=== PATIENT | female | born 1955 | race Caucasian/White ===

== ENCOUNTER 2020-03-23 07:39 | Emergency (ER) | payer MEDICAID, SELFPAY ==
--- NOTE | 2020-03-23 07:54 | ECG_ITS ---
Test Reason : HIGH BP Blood Pressure : / mmHG Vent. Rate : 074 BPM Atrial Rate : 074 BPM P-R Int : 148 ms QRS Dur : 126 ms QT Int : 434 ms P-R-T Axes : 061 -59 081 degrees QTc Int : 481 ms Normal sinus rhythm Possible Left atrial enlargement Right bundle branch block Left anterior fascicular block Bifascicular block Left ventricular hypertrophy with repolarization abnormality Cannot rule out Septal infarct , age undetermined Abnormal ECG When compared with ECG of 16-SEP-2014 11:32, (RBBB and left anterior fascicular block) is now Present Minimal criteria for Septal infarct are now Present Referred By: Yudith Chong Electronically Signed By:ELOISA TAYLOR
--- NOTE | 2020-03-23 07:56 | ED_ITS ---
HPI - General Adult General Chief complaint: Arrhythmia/Palpitations Stated complaint: HBP, Rapid Heart Rate Time Seen by Provider: 03/23/20 07:54 Source: patient Mode of arrival: ambulatory Limitations: no limitations History of Present Illness complaint: elevated BP and rapid HR Onset (ago): day(s) (3) Severity: moderate Relieving factors: none Exacerbating factors: other (had a cold took OTC cold medicines and she noted her BP went up) Associated symptoms: denies other symptoms Treatments prior to arrival: other (increased her lisinopril to 40mg daily usually 20mg daily took extra dose last night) Related Data Allergies Allergy/AdvReac Type Severity Reaction Status Date / Time penicillin V Allergy Unknown legs and Verified 03/23/20 08:09 hands go numb ALL NON-NAME BRAND MEDS Allergy Unknown UNKNOWN Uncoded 12/30/19 17:34 Cipro Allergy Unknown couldn't Uncoded 08/13/19 00:00 move Review of Systems Review of Systems: Constitutional : No Weight loss, No Fever, No Chills, No Fatigue, No Malaise ENT/Mouth : No sore throat, No Rhinorrhea Eyes: No Eye Pain, No Swelling, No Redness Cardiovascular : No Chest Pain, No SOB, No Dyspnea on Exertion, No Orthopnea, No Edema, No Palpitations Respiratory : No Cough, No Sputum, No Wheezing Gastrointestinal : No Nausea, No Vomiting, No Diarrhea, No Constipation, No abdominal Pain, No Hematochezia, No Melena Genitourinary : No Dysuria, No Urinary Frequency, No Hematuria, Musculoskeletal : No joint pain, No Myalgias, No Joint Swelling Skin : No Skin Lesions, No rash Neuro : No Weakness, No Numbness, No Dizziness, No Headache Psych : No Anxiety/Panic, No Depression All other systems reviewed and are negative [facility] Past Medical History Attestation statement: The following information was validated with the patient. Medical History (Updated 03/23/20 @ 09:43 by Yudith Chong DO) Factor 5 Leiden mutation, heterozygous HTN (hypertension) Social History Social History (Updated 03/23/20 @ 07:58 by Yudith Chong DO) Smoking Status: Never smoker Use of substances other than those prescribed or required for medical reasons: No Advance Directives: No Advance Directives Information Provided: No Physical Exam Vital Signs: Vital Signs: Last Vital Signs Temp 98.7 F 03/23/20 08:10 Pulse 74 03/23/20 08:10 Resp 18 03/23/20 08:10 BP 136/65 03/23/20 08:10 Pulse Ox 99 03/23/20 08:10 Body Mass Index 29.0 Appearance: Alert. Oriented X3. No acute distress. Eyes: Pupils equal, round and reactive to light. ENT: Pharynx normal. Neck: Normal inspection. Neck supple. CVS: Normal heart rate and rhythm. Pulses normal. Respiratory: No respiratory distress. Breath sounds normal. Abdomen: Soft and non-tender. Skin: Skin warm and dry. Normal skin color. Normal skin turgor. Extremities: No lower extremity edema. No calf ttp Neuro: Oriented X 3. No motor deficit. No sensory deficit. Course Course Course Narrative: BP much improved HR in 70s will instruct patient to continue 20mg lisinopril daily and follow up with PCP WBCs low so I obtained a COVID swab which is positive, patient aware Medical Decision Making [facility] Narrative Medical decision making narrative: 64 yo female with hx of HTN on lisinopril usually 20mg daily here with BPs at home 190s and elevated HR after taking OTC medications she has had no CP/SOB - will obtain labs, EKG, TSH - monitor may need additional medications if her BP remains high during her stay Lab Data Result diagrams: 03/23/20 08:46 03/23/20 08:46 Labs: Lab Results 03/23/20 03/23/20 03/23/20 Range/Units 08:46 08:46 09:19 WBC 3.3 L (4.8-10.8) X10*3/uL RBC 4.78 (4.20-5.50) X10*6/uL Hgb 14.6 (12.0-16.0) g/dl Hct 42.3 (37-47) % MCV 88.5 (80-98) fL MCH 30.5 (27.0-33.0) pg MCHC 34.5 (31.0-35.0) g/dl RDW 12.4 (11.0-16.0) % Plt Count 273 (160-400) X10*3/uL MPV 10.4 (9.4-12.3) fL Immature Gran % (Auto) 0.3 (0.0-0.4) % Neut % (Auto) 62.5 (45-73) % Lymph % (Auto) 27.6 (20-40) % Lee % (Auto) 7.2 (2-11) % Eos % (Auto) 2.4 (0-4) % Baso % (Auto) 0.0 (0-2) % Lymph # (Auto) 0.9 L (1.2-4.9) X10*3/uL Lee # (Auto) 0.2 (0.1-1.2) X10*3/uL Eos # (Auto) 0.1 (0.0-0.4) X10*3/uL Baso # (Auto) 0.0 (0.0-0.2) X10*3/uL Abs Immat Gran (auto) 0.01 (0.00-0.03) X10*3/uL Absolute Neuts (auto) 2.1 (2.0-8.3) X10*3/uL Absolute Nucleated RBC 0.000 (0.0-0.012) X10*3/uL Nucleated RBC % (auto) 0.0 (0.0-0.2) /100WBC Sodium 140 (135-145) mmol/L Potassium 4.0 (3.3-5.1) mmol/l Chloride 101 (96-108) mmol/L Carbon Dioxide 28 (22-29) mmol/L Anion Gap 15 (12-20) BUN 19 H (9-16) mg/dL Creatinine 0.72 (0.5-1.4) mg/dL Estim Creat Clear Calc 86.1 Estimated GFR > 60 Random Glucose 106 (60-115) mg/dL Calcium 9.9 (8.4-10.2) mg/dL Total Bilirubin 0.5 (0.0-1.0) mg/dL Direct Bilirubin 0.2 (0.0-0.5) mg/dL AST 23 (5-31) U/L ALT 21 (0-31) U/L Alkaline Phosphatase 101 (39-117) U/L Total Protein 6.8 (6.5-8.0) g/dL Albumin 4.5 (3.5-5.0) g/dL COVID-19 (TIKA) Positive A (Negative) COVID-19 Clin Com See Note ECG Data Attestation: I personally reviewed and interpreted this ECG as follows: Interpretation: Rate: 74 Rhythm: NSR [place]: left, LVH Normal P waves. Normal LINDA. RBBB ST T wave : normal qTC: normal prior studies: no acute ischemia, RBBB new since 2014 The study has been interpreted contemporaneously by me. . Discharge Plan Discharge Clinical Impression: COVID-19, HTN (hypertension) Patient Disposition: Home, Self-Care Instructions: COVID-19 (Coronavirus Disease 2019) (ED), Chronic Hypertension (ED) Additional Instructions: return to ED for any worsening symptoms or concerns take 20mg of your HTN medication lisinopril (zestril) daily Referrals: Pepper Nugent MD [Primary Care Provider] - 2 days (as needed) Stand Alone Forms: Work/School Release
[2020-03-23 08:10] VITALS: BP 136/65; PULSE 74; RESP 18; TEMP 37.1; O2SAT 99; BMI 29.0
[2020-03-23 08:55] LABS: Eosinophils Absolute Auto 0.1 X10*3/uL (0.0-0.4); Eosinophils Percent Auto 2.4 % (0-4); Hematocrit 42.3 % (37-47); Hemoglobin 14.6 g/dl (12.0-16.0); Imm Gran Abs Auto 0.01 X10*3/uL (0.00-0.03); Imm Gran Pct Auto 0.3 % (0.0-0.4); Lymphocytes Absolute Auto 0.9 X10*3/uL (1.2-4.9); Lymphocytes Percent Auto 27.6 % (20-40); Mean Corpuscular HGB Conc 34.5 g/dl (31.0-35.0); Mean Corpuscular Hemoglobin 30.5 pg (27.0-33.0); Mean Corpuscular Volume 88.5 fL (80-98); Mean Platelet Volume 10.4 fL (9.4-12.3); Monocytes Absolute Auto 0.2 X10*3/uL (0.1-1.2); Monocytes Percent Auto 7.2 % (2-11); Neutrophils Absolute Auto 2.1 X10*3/uL (2.0-8.3); Neutrophils Percent Auto 62.5 % (45-73); Platelet Count 273 X10*3/uL (160-400); Red Blood Count 4.78 X10*6/uL (4.20-5.50); Red Cell Distribution Width 12.4 % (11.0-16.0); White Blood Count 3.3 X10*3/uL (4.8-10.8)
[2020-03-23 08:56] LABS: MANUAL DIFF FLAG NO
[2020-03-23 09:22] LABS: Alanine Aminotransferase 21 U/L (0-31); Albumin Level 4.5 g/dL (3.5-5.0); Alkaline Phosphatase 101 U/L (39-117); Anion Gap 15 (12-20); Aspartate Amino Transferase 23 U/L (5-31); Bilirubin Direct 0.2 mg/dL (0.0-0.5); Bilirubin Total 0.5 mg/dL (0.0-1.0); Blood Urea Nitrogen 19 mg/dL (9-16); Calcium 9.9 mg/dL (8.4-10.2); Carbon Dioxide 28 mmol/L (22-29); Chloride 101 mmol/L (96-108); Creatinine Clr Calc Pharmacy 86.1; Estimated Glomerular Filt Rate > 60; Glucose Random 106 mg/dL (60-115); Sodium 140 mmol/L (135-145); Total Protein 6.8 g/dL (6.5-8.0)
[2020-03-23 09:34] LABS: COVID-19 Test Positive (Negative)
[2020-03-23 09:42] LABS: Thyroid Stimulating Hormone 0.68 uIU/mL (0.32-4.0)
== END 2020-03-23 10:06 | disposition home or self-care (01) ==
PROVIDERS: Emergency Provider Emergency Medicine; PCP Internal Medicine
DX: U07.1 COVID-19 (principal); I10 Essential (primary) hypertension
CPT/HCPCS: 36415; 80048; 80076; 84443; 85025; 87635; 93005; 99283

== ENCOUNTER 2020-03-31 09:29 | Outpatient (REF) | payer MEDICAID, SELFPAY | END 2020-03-31 09:30 | disposition home or self-care (01) | LOC: HO.LAB 09:29 | PROVIDERS: Visit Provider Internal Medicine | DX: Z20.828 Contact with and (suspected) exposure to other viral communicable diseases (principal) | CPT/HCPCS: C9803; U0003 ==

== ENCOUNTER 2020-09-07 07:22 | Outpatient (REF) | payer MEDICAID, SELFPAY ==
[2020-09-07 11:18] LABS: MANUAL DIFF FLAG NO
[2020-09-07 11:24] LABS: Basophils Percent Auto 0.3 % (0-2); Eosinophils Absolute Auto 0.2 X10*3/uL (0.0-0.4); Eosinophils Percent Auto 6.4 % (0-4); Hematocrit 41.4 % (37-47); Hemoglobin 13.8 g/dl (12.0-16.0); Imm Gran Abs Auto 0.01 X10*3/uL (0.00-0.03); Imm Gran Pct Auto 0.3 % (0.0-0.4); Lymphocytes Absolute Auto 0.7 X10*3/uL (1.2-4.9); Lymphocytes Percent Auto 18.7 % (20-40); Mean Corpuscular HGB Conc 33.3 g/dl (31.0-35.0); Mean Corpuscular Hemoglobin 30.3 pg (27.0-33.0); Mean Platelet Volume 10.7 fL (9.4-12.3); Monocytes Absolute Auto 0.5 X10*3/uL (0.1-1.2); Monocytes Percent Auto 13.9 % (2-11); Neutrophils Absolute Auto 2.3 X10*3/uL (2.0-8.3); Neutrophils Percent Auto 60.4 % (45-73); Platelet Count 232 X10*3/uL (160-400); Red Blood Count 4.55 X10*6/uL (4.20-5.50); Red Cell Distribution Width 12.4 % (11.0-16.0); White Blood Count 3.7 X10*3/uL (4.8-10.8)
[2020-09-07 11:40] LABS: Alanine Aminotransferase 21 U/L (0-31); Anion Gap 14 (12-20); Aspartate Amino Transferase 22 U/L (5-31); Blood Urea Nitrogen 23 mg/dL (9-16); Calcium 9.7 mg/dL (8.4-10.2); Carbon Dioxide 27 mmol/L (22-29); Chloride 103 mmol/L (96-108); Cholesterol 208 mg/dL; Estimated Glomerular Filt Rate > 60; Glucose Fasting 92 mg/dL (60-99); HDL Cholesterol 51 mg/dL; LDL Cholesterol Calculated 138 mg/dl; Potassium 4.5 mmol/L (3.3-5.1); Sodium 139 mmol/L (135-145); Triglycerides 98 mg/dL
[2020-09-07 11:54] LABS: SARS COV2 IgG Positive (Negative)
[2020-09-07 12:02] LABS: TSH reflex Free T4 0.86 uIU/mL (0.32-4.0); Vitamin D 25-OH Total 31.2 ng/mL (>30)
== END 2020-09-07 07:23 | disposition home or self-care (01) ==
LOC: HO.HMGCLDS 07:22
PROVIDERS: PCP Internal Medicine; Visit Provider Internal Medicine
DX: Z00.01 Encounter for general adult medical examination with abnormal findings (principal); D68.51 Activated protein C resistance; I10 Essential (primary) hypertension; Z86.16 Personal history of COVID-19
CPT/HCPCS: 36415; 80048; 80061; 82306; 84443; 84450; 84460; 85025; 86769

== ENCOUNTER 2020-12-21 08:07 | Outpatient (REF) | payer MEDICAID, SELFPAY ==
[2020-12-21 11:10] LABS: Basophils Percent Auto 0.2 % (0-2); Eosinophils Absolute Auto 0.3 X10*3/uL (0.0-0.4); Eosinophils Percent Auto 5.7 % (0-4); Hematocrit 39.9 % (37-47); Hemoglobin 13.4 g/dl (12.0-16.0); Imm Gran Abs Auto 0.01 X10*3/uL (0.00-0.03); Imm Gran Pct Auto 0.2 % (0.0-0.4); Lymphocytes Absolute Auto 1.2 X10*3/uL (1.2-4.9); Lymphocytes Percent Auto 28.3 % (20-40); MANUAL DIFF FLAG NO; Mean Corpuscular HGB Conc 33.6 g/dl (31.0-35.0); Mean Corpuscular Hemoglobin 30.9 pg (27.0-33.0); Mean Corpuscular Volume 91.9 fL (80-98); Mean Platelet Volume 10.8 fL (9.4-12.3); Monocytes Absolute Auto 0.4 X10*3/uL (0.1-1.2); Monocytes Percent Auto 10.1 % (2-11); Neutrophils Absolute Auto 2.4 X10*3/uL (2.0-8.3); Neutrophils Percent Auto 55.5 % (45-73); Platelet Count 264 X10*3/uL (160-400); Red Blood Count 4.34 X10*6/uL (4.20-5.50); Red Cell Distribution Width 12.5 % (11.0-16.0); White Blood Count 4.4 X10*3/uL (4.8-10.8)
[2020-12-21 11:36] LABS: Alanine Aminotransferase 14 U/L (0-31); Anion Gap 11 (12-20); Aspartate Amino Transferase 19 U/L (5-31); Blood Urea Nitrogen 17 mg/dL (9-16); Calcium 9.5 mg/dL (8.4-10.2); Carbon Dioxide 28 mmol/L (22-29); Chloride 106 mmol/L (96-108); Cholesterol 171 mg/dL; Estimated Glomerular Filt Rate > 60; Glucose Fasting 89 mg/dL (60-99); HDL Cholesterol 56 mg/dL; LDL Cholesterol Calculated 95 mg/dl; Potassium 4.1 mmol/L (3.3-5.1); Sodium 141 mmol/L (135-145); Triglycerides 104 mg/dL
[2020-12-21 12:00] LABS: Vitamin D 25-OH Total 31.2 ng/mL (>30)
== END 2020-12-21 08:08 | disposition home or self-care (01) ==
LOC: HO.HMGCLDS 08:07
PROVIDERS: PCP Internal Medicine; Visit Provider Internal Medicine
DX: Z00.00 Encounter for general adult medical examination without abnormal findings (principal); I10 Essential (primary) hypertension; Z78.0 Asymptomatic menopausal state
CPT/HCPCS: 36415; 80048; 80061; 82306; 84450; 84460; 85025

== ENCOUNTER 2021-04-23 09:19 | Outpatient (REF) | payer MEDICAID, SELFPAY ==
[2021-04-23 09:42] LABS: Binax Internal Control QC Valid; Binax Now Covid-19 Ag Positive (Negative)
== END 2021-04-23 09:20 | disposition home or self-care (01) ==
LOC: HO.HMGCLDS 09:19
PROVIDERS: Visit Provider Internal Medicine
DX: Z20.822 Contact with and (suspected) exposure to COVID-19 (principal); J06.9 Acute upper respiratory infection, unspecified
CPT/HCPCS: 36415

== ENCOUNTER 2021-05-09 09:35 | Outpatient (REF) | payer MEDICAID, SELFPAY ==
--- NOTE | ~2021-05-09 | XR_ITS ---
EXAMINATION: XR CHEST CLINICAL INFORMATION: Cough COMPARISON: December 08, 2007 TECHNIQUE: 2 views of the chest were obtained. FINDINGS: No significant abnormality is noted involving the heart, lungs, mediastinum, bony thorax or soft tissues. There is multilevel spurring seen about the mid and lower thoracic spine. XR/XR chest 2V IMPRESSION: No acute disease.
== END 2021-05-09 09:36 | disposition home or self-care (01) ==
LOC: HO.HMGCX 09:35
PROVIDERS: PCP Internal Medicine; Visit Provider Physician Assistant Medical
DX: R05.9 Cough, unspecified (principal)
CPT/HCPCS: 71046

== ENCOUNTER 2022-10-10 07:58 | Outpatient (REF) | payer MEDICARE, MEDICAID, SELFPAY ==
[2022-10-10 11:14] LABS: MANUAL DIFF FLAG NO
[2022-10-10 11:16] LABS: Basophils Percent Auto 0.2 % (0-2); Eosinophils Absolute Auto 0.2 X10*3/uL (0.0-0.4); Eosinophils Percent Auto 5.8 % (0-4); Hematocrit 40.9 % (37.0-47.0); Hemoglobin 13.5 g/dl (12.0-16.0); Imm Gran Abs Auto 0.01 X10*3/uL (0.00-0.03); Imm Gran Pct Auto 0.2 % (0.0-0.4); Lymphocytes Absolute Auto 1.1 X10*3/uL (1.2-4.9); Lymphocytes Percent Auto 25.3 % (20-40); Mean Corpuscular Hemoglobin 29.9 pg (27.0-33.0); Mean Corpuscular Volume 90.7 fL (80.0-98.0); Mean Platelet Volume 10.8 fL (9.4-12.3); Monocytes Absolute Auto 0.4 X10*3/uL (0.1-1.2); Monocytes Percent Auto 8.7 % (2-11); Neutrophils Absolute Auto 2.5 x10*3/uL (2.0-8.3); Neutrophils Percent Auto 59.8 % (45-73); Platelet Count 271 X10*3/uL (160-400); Red Blood Count 4.51 X10*6/uL (4.20-5.50); Red Cell Distribution Width 12.5 % (11.0-16.0); White Blood Count 4.2 X10*3/uL (4.8-10.8)
[2022-10-10 11:47] LABS: Alanine Aminotransferase 20 U/L (0-31); Anion Gap 13 (12-20); Aspartate Amino Transferase 21 U/L (5-31); Blood Urea Nitrogen 16 mg/dL (9-16); Calcium 10.2 mg/dL (8.4-10.2); Carbon Dioxide 26 mmol/L (22-29); Chloride 106 mmol/L (96-108); Cholesterol 181 mg/dL; Estimated Glomerular Filt Rate > 60; Glucose Fasting 97 mg/dL (60-99); HDL Cholesterol 48 mg/dL; LDL Cholesterol Calculated 117 mg/dl; Potassium 3.9 mmol/L (3.3-5.1); Sodium 141 mmol/L (135-145); Triglycerides 82 mg/dL
[2022-10-10 11:56] LABS: Vitamin D 25-OH Total 40.8 ng/mL (>30)
== END 2022-10-10 07:59 | disposition home or self-care (01) ==
LOC: HO.HMGCLDS 07:58
PROVIDERS: PCP Internal Medicine; Visit Provider Internal Medicine
DX: Z00.01 Encounter for general adult medical examination with abnormal findings (principal); I10 Essential (primary) hypertension; Z78.0 Asymptomatic menopausal state
CPT/HCPCS: 36415; 80048; 80061; 82306; 84450; 84460; 85025

== ENCOUNTER 2022-11-12 12:44 | Outpatient (REF) | payer MEDICARE, MEDICAID, SELFPAY ==
--- NOTE | ~2022-11-12 | MM_ITS ---
EXAMINATION: BONE DENSITOMETRY CLINICAL INDICATION: Encounter for screening for osteoporosis. COMPARISON: This is the patient's baseline examination. TECHNIQUE: Using a [employer] DXA System (software version: 13.1) manufactured by [employer], dual-energy x-ray absorptiometry was performed of the lumbar spine and left hip. The images are of good technical quality. Summary results are attached. FINDINGS: AP SPINE L1-L2 (excluding L3 and L4): The data of L1-L4 has been changed to exclude the L3 and L4 vertebral bodies, because degenerative sclerosis at these levels may cause overestimation of lumbar spine density. BMD 0.996 g/cm2, Z-score -0.2, T-score -1.4, osteopenia. LEFT FEMUR, NECK: BMD 0.889 g/cm2, Z-score 0.2, T-score -1.1, osteopenia. LEFT FEMUR, TOTAL: BMD 0.804 g/cm2, Z-score -0.6, T-score -1.6, osteopenia. IDENTIFIED RISK FACTORS: Menopause. HISTORY OF FRACTURE: None listed. MEDICATIONS: Multivitamins. MM/XR DEXA axial skeleton IMPRESSION: 1. DIAGNOSIS: Osteopenia based on the lowest T-score value of -1.6 in the total femur applying World Health Organization criteria. 2. 10-YEAR FRACTURE RISK PREDICTION, FRAX: Major osteoporotic fracture (clinical spine, forearm, hip or shoulder) 8.2%. Hip fracture 0.7%. 3. Treatment Recommendations: NOF guidelines recommend consideration for treatment in postmenopausal women and men age 50 and older presenting with the following: -A hip or vertebral (clinical or morphometric) fracture. -T-score less than or equal to -2.5 at the femoral neck or spine after appropriate evaluation to exclude secondary causes. -Low bone mass at the hip or spine and a 10-year fracture probability by FRAX of greater than or equal to 3% for hip fracture or greater than or equal to 20% for major osteoporotic fracture based on the [place] adapted WHO algorithm. 4. Other Recommendations: All treatment decisions require clinical judgment and consideration of individual patient factors, including patient preferences, comorbidities, previous drug use, risk factors not captured in the FRAX model (e.g. frailty, falls, vitamin D deficiency, increased bone turnover, interval significant decline in bone density) and possible under or overestimation of fracture risk by FRAX. Additional medical evaluation for secondary cause of low bone mineral density may be appropriate. FUTURE SCAN RECOMMENDATION: People with diagnosed cases of osteoporosis or at high risk for fracture should have regular bone mineral density tests. For patients eligible for Medicare, routine testing is allowed once every 2 years. The testing frequency can be increased to one year for patients who have rapidly progressing disease, those who are receiving or discontinuing medical therapy to restore bone mass, or have additional risk factors.
--- NOTE | ~2022-11-12 | MM_ITS ---
EXAMINATION: MM SCREENING DIGITAL BREAST TOMOSYNTHESIS, BILATERAL CLINICAL INFORMATION: Screening. Asymptomatic. The lifetime risk of breast cancer based on the Tyrer-Cuzick Model is 10.6%. COMPARISON: Mammography: This study is compared with prior exams dating back to 2017.. TECHNIQUE: Digital breast tomosynthesis is performed in both the craniocaudal and mediolateral oblique views along with computer-aided detection (CAD). Synthesized 2D images are generated from the tomosynthesis. FINDINGS: There are scattered areas of fibroglandular density (ACR BI-RADS breast composition Category b). There are no significant masses, abnormal calcifications, or other abnormalities. MM/MM tomosynthesis screening BI IMPRESSION: No mammographic evidence of malignancy. ASSESSMENT: BI-RADS BI-RADS 1 - Negative RECOMMENDATION: Routine annual mammography screening. 1 year F/U This examination should not preclude the clinical evaluation of a suspicious palpable abnormality. This patient's information was entered into a reminder system with a target due date for their next mammogram.
== END 2022-11-12 12:45 | disposition home or self-care (01) ==
LOC: HO.MAMMO 12:44
PROVIDERS: PCP Internal Medicine; Visit Provider Internal Medicine
DX: Z12.31 Encounter for screening mammogram for malignant neoplasm of breast (principal); Z13.820 Encounter for screening for osteoporosis; Z78.0 Asymptomatic menopausal state
CPT/HCPCS: 77063; 77067; 77080

== ENCOUNTER → 2022-11-12 13:15 | Outpatient (BNV) | payer MEDICARE, MEDICAID, SELFPAY | PROVIDERS: PCP Internal Medicine; Visit Provider Radiology Diagnostic Radiology | DX: M85.89 Other specified disorders of bone density and structure, multiple sites (principal) | CPT/HCPCS: 77063; 77067; 77080 ==

== ENCOUNTER → 2023-12-18 14:19 | Outpatient (RCR) | payer MEDICAID, SELFPAY ==
[2020-09-26 10:15] VITALS: BP 116/59; PULSE 76; RESP 14; TEMP 36.3; O2SAT 100; BMI 27.5
--- NOTE | 2020-09-26 11:09 | P.CNHO_ITS ---
Subjective - Subjective Chief complaint: Family history of thrombophilia Patient: new to practice Consult date: 09/26/20 Requesting Physician: Dr. Nugent Primary Care Provider: Pepper Nugent MD Medical Summary: Diagnosis: Personal and family history of prothrombin gene mutation. 2016-homozygous for prothrombin gene mutation. HPI - Consult Narrative Reason for consult: Thrombophilia Narrative: Erika Ley is a 65 year old female referred for Hematology evaluation because of personal history of thrombophilia and family history of thromboembolism. She has been doing well although she did get COVID-19 infection in March 2020. She did not want to get vaccinated because of her severe allergies. She does not receive flu shot because of the same recent. She was asymptomatic with her COVID infection. She has had no other medical problems since her last visit here in 2015. One of her brothers however, developed extensive DVT after knee surgery. He did not receive perioperative thromboprophylaxis as per her report. She denies any problems such as pleuritic chest pain, cough or shortness of breath. She is going to go for her mammogram but does not want to receive COVID-19 vaccination. 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 Brother Factor 5 Leiden mutation, heterozygous Surgical History: Surgical History (Last Reviewed 09/11/20 @ 18:25 by Pepper Nugent MD) H/O right knee surgery Social History: Social History (Last Updated 09/26/20 @ 10:22 by Hoda John) Alcohol History: Alcohol intake: current Alcohol History Details: Alcohol intake frequency: a few times a month Tobacco History: Patient Tobacco Use Status: Former Tobacco user Cigarette Packs Per Day: 1.5 Cigarettes Per Day: 30.0 Smoke Quit Date: 1989 Substance Use History: Use of substances other than those prescribed or required for medical reasons : No Home Medications and Allergies Home Medications Medication Instructions Recorded Confirmed Type lisinopril [Zestril] 1 tab PO DAILY 09/26/20 09/26/20 History Allergies Allergy/AdvReac Type Severity Reaction Status Date / Time penicillin V Allergy Unknown legs and Verified 09/05/20 14:39 hands go numb Cipro Allergy Unknown couldn't Uncoded 08/13/19 00:00 move Physical Exam Vital signs: Vital Signs Temp 97.4 F 09/26/20 10:15 Pulse 76 09/26/20 10:15 Resp 14 09/26/20 10:15 BP 116/59 L 09/26/20 10:15 Pulse Ox 100 09/26/20 10:15 Intake & Output 09/25/20 09/26/20 09/26/20 18:59 06:59 18:59 Other: Weight 77.4 kg [place] Weight in Grams 20989 Weight 77.4 kg - Constitutional Present: no acute distress - Routine HEENT Exam Head: Present: normal inspection Eye: Present: normal appearance - Routine Neck Exam Present: supple. Absent: lymphadenopathy - Routine Respiratory Exam Absent: accessory muscle use - Routine Cardiovascular Exam Cardiovascular: Present: S1, S2 - Routine Extremities Exam Present: normal inspection. Absent: joint swelling - Routine Skin Exam Present: intact. Absent: cyanosis, erythema Assessment and Plan (1) Prothrombin gene mutation Status: Chronic 1. This is a 65-year-old woman with personal history of homozygous positivity for Prothrombin gene mutation. Two of her brothers also have this, both have had problems with thromboembolism. Patient herself has never had DVT or thromboembolism. She is aware of her increased risk of thrombosis and to inform her doctors about this if she is scheduled for any surgery. She has 3 children, they have been informed but not tested for prothrombin gene mutation. The role doing well. She is doing well overall. Today we discussed pros and cons of COVID-19 vaccination. She has developed antibodies since her infection in March 2020. Because of her severe allergies to medications as well as seasonal allergies, she wants to defer receiving vaccine at this time. I thank you for this consultation. Follow-up in 1 year.
--- NOTE | 2021-09-26 11:09 | HO.HEMONCSCH ---
Patient called to cancel appt did not specify why . she did not want to reschedule when we were on the phone . she states she will call back to reschedule .
== END | disposition home or self-care (01) ==
LOC: HO.ONC 09-26 09:56
PROVIDERS: PCP Internal Medicine; Referring Provider Internal Medicine; Visit Provider Internal Medicine
DX: D68.52 Prothrombin gene mutation (principal)
CPT/HCPCS: 99202

== ENCOUNTER 2025-04-04 08:43 | Emergency (ER) | payer MEDICARE, MEDICAID, SELFPAY ==
--- NOTE | ~2025-04-04 | CT_ITS ---
EXAMINATION: CT ABDOMEN PELVIS WITH IV CONTRAST HISTORY: Epigastric abdominal pain. Nausea/vomiting COMPARISON: There are no prior studies for available comparison. TECHNIQUE: CT scan of the abdomen and pelvis was performed following administration of 85 mL Omnipaque 350 using standard departmental protocol. Coronal and sagittal reformatted images were generated and reviewed. Oral contrast material was not administered at the request of the referring physician. This CT exam was performed with one or more of the following dose reduction techniques: automated exposure control, adjustment of the mA and/or kV according to patient size, use of iterative reconstruction technique. DLP: 446 mGy-cm FINDINGS: LOWER CHEST: The visualized lung bases are clear. There is no pleural effusion. CARDIOVASCULATURE: The heart is normal in size. There is no pericardial effusion. LIVER: The liver is enlarged. No liver mass is identified. The hepatic and portal veins are patent. GALLBLADDER / BILE DUCTS: There is cholelithiasis. There is no intra or extrahepatic biliary ductal dilatation. SPLEEN: The spleen is enlarged. No focal splenic lesion is identified. PANCREAS: The pancreas is unremarkable in appearance. ADRENAL GLANDS: Within normal limits. KIDNEYS/RETROPERITONEUM: No renal calculi are identified. There is no hydronephrosis. No renal masses are identified. LYMPH NODES: No abdominal or pelvic lymphadenopathy. VASCULATURE: The abdominal aorta is normal in caliber. MESENTERY/PERITONEUM: No free fluid. No masses. There is no free intraperitoneal gas. STOMACH: There is a small hiatal hernia. The remainder the stomach is collapsed. SMALL BOWEL: The small bowel is normal in caliber. COLON: There is a large amount of stool in the proximal colon. APPENDIX: Normal. URINARY BLADDER/PELVIC ORGANS: The urinary bladder is unremarkable. There are calcifications in the uterus measuring up to 1.7 cm in size, consistent with fibroids. BONES / SOFT TISSUES: There is severe degenerative disc disease of the spine. CT/CT abdomen pelvis w IV con IMPRESSION: 1. Hepatosplenomegaly. 2. Cholelithiasis. 3. Small hiatal hernia. 4. Large amount of stool in the proximal colon. Electronically signed by: Jeff Salazar MD 04/04/2025 10:48 AM [facility]
[2025-04-04 08:49] VITALS: BP 164/69; PULSE 62; RESP 16; TEMP 36; O2SAT 100; BMI 25.4
--- NOTE | 2025-04-04 08:56 | ECG_ITS ---
Test Reason : abd pain Blood Pressure : */* mmHG Vent. Rate : 63 BPM Atrial Rate : 63 BPM P-R Int : 162 ms QRS Dur : 138 ms QT Int : 472 ms P-R-T Axes : 46 -48 74 degrees QTcB Int : 483 ms Normal sinus rhythm Right bundle branch block Left anterior fascicular block Bifascicular block Left ventricular hypertrophy with repolarization abnormality ( R in aVL ) Cannot rule out Septal infarct (cited on or before 23-Mar-2020) Abnormal ECG When compared with ECG of 23-Mar-2020 08:37, Questionable change in initial forces of Septal leads T wave amplitude has decreased in Anterior leads Referred By: Sonam Chong Electronically Signed By: KIERAN CLAYTON MD
[2025-04-04 09:15] LABS: Hematocrit 39.5 % (37.0-47.0); Hemoglobin 13.4 g/dl (12.0-16.0); Imm Gran Abs Auto 0.02 X10*3/uL (0.00-0.03); Imm Gran Pct Auto 0.3 % (0.0-0.4); Lymphocytes Absolute Auto 0.5 X10*3/uL (1.2-4.9); MANUAL DIFF FLAG SCAN; Mean Corpuscular HGB Conc 33.9 g/dl (31.0-35.0); Mean Corpuscular Hemoglobin 30.2 pg (27.0-33.0); Mean Corpuscular Volume 89.2 fL (80.0-98.0); NRBC Abs Auto 0.000 X10*3/uL (0.0-0.012); NRBC Pct Auto 0.0 /100WBC (0.0-0.2); Platelet Count 325 X10*3/uL (160-400); Red Blood Count 4.43 X10*6/uL (4.20-5.50); SCAN SMEAR FLAG 1; White Blood Count 7.2 X10*3/uL (4.8-10.8)
--- NOTE | 2025-04-04 09:32 | ED.ABDPAIN ---
HPI - Abdominal Pain General Chief Complaint: Abdominal Pain Stated Complaint: abd pain Time Seen by Provider: 04/04/25 09:32 Source: patient, family, RN notes reviewed and old records reviewed Mode of arrival: ambulatory History of Present Illness ED Provider: Nya Evans PA-C HPI narrative: 69-year-old female with a past medical history HTN, cholelithiasis, presenting to the ED complaining of epigastric abdominal pain, nausea and vomiting about 15 episodes since last night. Unable to tolerate p.o. States recently completed a 2 month strict diet which included abstinent from alcohol, certain foods and caffeine. Admits on Friday night had a few drinks at a [employer] party. Denies NSAID use. Denies fever, chills, diarrhea/constipation, dysuria /hematuria, hematemesis/ melena Related Data Previous Rx's ?Medication ?Instructions ?Recorded albuterol sulfate 90 mcg/actuation 2 puff inhalation Q4-6H PRN 04/23/21 aerosol inhaler shortness of breath or wheezing #6.7 grams azithromycin 250 mg tablet See Rx Instructions PO .COMPLEX #6 10/18/22 tabs phenazopyridine 200 mg tablet 200 mg PO TID 3 days #9 tabs 10/21/22 (Pyridium) Zestril 20 mg tablet (lisinopril) 20 mg PO DAILY 90 days #90 tabs 03/27/23 Allergies Allergy/AdvReac Type Severity Reaction Status Date / Time penicillin V Allergy Unknown legs and Verified 04/04/25 08:54 hands go numb Cipro Allergy Unknown couldn't Uncoded 04/04/25 08:54 move Review of Systems Review of Systems Yes all other systems are reviewed and are negative Constitutional: Reports as per HPI [facility] Past Medical History Attestation statement: The following information was validated with the patient. 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 Brother Factor 5 Leiden mutation, heterozygous Social History Social History Housing: House Alcohol intake: current Alcohol intake frequency: a few times a month Patient Tobacco Use Status: Former Tobacco user Cigarette Packs Per Day: 1.5 Second Hand Smoke Exposure: No Advance Directives: No Advance Directives Information Provided: Yes service: No Current occupational status: employed Cognitive needs: No Hearing needs: No Vision needs: No Physical Exam ED Vital Signs: Vital Signs - 24 hr 04/04/25 08:49 04/04/25 10:00 04/04/25 10:15 Temperature 96.8 F Pulse Rate 62 62 Respiratory Rate 16 17 20 Blood Pressure 164/69 H 165/60 H Pulse Oximetry 100 99 Oxygen Delivery Method Room Air Room Air BMI result Body Mass Index 25.4 Const General: cooperative, healthy appearing and no acute distress Orientation/consciousness: patient oriented x3 Limitations: no limitations HENMT Head: Yes normal to inspection and Yes atraumatic Ears: hearing grossly normal bilaterally General nose exam: Normal external nose present Face and sinus: Yes normal facial exam Eyes General: appearance normal, both eyes and all related structures EOM: EOMs intact bilaterally Neck Neck: Yes normal visual inspection and Yes no meningeal signs Resp Effort & Inspection: normal respiratory effort and no respiratory distress Cardio Rate: regular rate GI Inspection: Yes normal to inspection Palpation (GI): Soft to palpation, Tenderness to palpation present (GI) in the epigastrum; with no rebound tenderness, no guarding and not rigid General: Yes no CVA tenderness Back/Spine/Pelvis Back: no CVA tenderness Skin Rashes: no rashes Wounds: no wounds Neuro General: patient oriented x3, tone normal and no meningeal signs Cranial nerves: Yes CN's II-XII intact bilaterally Gait exam (Neuro): Normal gait present Extrem General: Yes normal to inspection Course Course Course Narrative: 10:56 AM 04/04/2025 (Nya Evans PA-C): no leukocytosis. BUN mildly elevated > suspect from dehydration. AST/ALT mildly elevated - troponin negative. Labs otherwise reassuring - Viral testing negative CT abdomen pelvis w IV con IMPRESSION: 1. Hepatosplenomegaly. 2. Cholelithiasis. 3. Small hiatal hernia. 4. Large amount of stool in the proximal colon. > will p.o. trial 11:34 AM 04/04/2025 (Nya Evans PA-C): results discussed. Patient tolerating p.o. without difficulty. Reports symptomatic improvement, asymptomatic at present. Plan to DC home with close PCP/GI follow-up Results discussed with patient including worrisome signs and symptoms and strict return precautions, and when to return to the emergency department. They verbalized understanding and feel safe for discharge at this time. Medical Decision Making Medical Decision Making [facility] Narrative: 69-year-old female with a past medical history HTN, cholelithiasis, presenting to the ED complaining of epigastric abdominal pain, nausea and vomiting about 15 episodes since last night. On exam vitals stable, NAD, nontoxic appearing, abdomen soft with epigastric tenderness, no rebound or guarding, no CVAT. Concern for gastritis vs GERD vs pancreatitis. Lower suspicion for acute cholecystitis /cholelithiasis or ACS at this time. lower suspicion for dissection, appendicitis, diverticulitis Plan: EKG, labs, CT AP, IVF, pain management, re-evaluate Please refer to course for remaining clinical decision making, interpretation of labs/imaging results, and discussions with consultants and/or family members. Differential Diagnosis Differential Diagnoses: The differential diagnosis associated with the presentation includes As above Admission/Observation Consideration of admission/observation: Escalation of care including admission/observation considered Lab Data [facility] Lab Attestation statement: I reviewed the patient's lab results. 04/04/25 09:10 04/04/25 09:10 Labs: Lab Results 04/04/25 Range/Units 09:10 WBC 7.2 (4.8-10.8) X10*3/uL RBC 4.43 (4.20-5.50) X10*6/uL Hgb 13.4 (12.0-16.0) g/dl Hct 39.5 (37.0-47.0) % MCV 89.2 (80.0-98.0) fL MCH 30.2 (27.0-33.0) pg MCHC 33.9 (31.0-35.0) g/dl RDW 13.1 (11.0-16.0) % Plt Count 325 (160-400) X10*3/uL MPV 10.2 (9.4-12.3) fL Immature Gran % (Auto) 0.3 (0.0-0.4) % Neut % (Auto) 90.8 H (45-73) % Lymph % (Auto) 6.9 L (20-40) % Early % (Auto) 1.9 L (2-11) % Eos % (Auto) 0.0 (0-4) % Baso % (Auto) 0.1 (0-2) % Lymph # (Auto) 0.5 L (1.2-4.9) X10*3/uL Early # (Auto) 0.1 (0.1-1.2) X10*3/uL Eos # (Auto) 0.0 (0.0-0.4) X10*3/uL Baso # (Auto) 0.0 (0.0-0.2) X10*3/uL Abs Immat Gran (auto) 0.02 (0.00-0.03) X10*3/uL Absolute Neuts (auto) 6.6 (2.0-8.3) x10*3/uL Absolute Nucleated RBC 0.000 (0.0-0.012) X10*3/uL Nucleated RBC % (auto) 0.0 (0.0-0.2) /100WBC Smear Tech's Comments VERIFIED Sodium 141 (135-145) mmol/L Potassium 3.9 (3.3-5.1) mmol/L Chloride 107 (96-108) mmol/L Carbon Dioxide 26 (22-29) mmol/L Anion Gap 12 (12-20) BUN 23 H (9-16) mg/dL Creatinine 0.63 (0.5-1.4) mg/dL Estim Creat Clear Calc 83.5 Estimated GFR > 60 Random Glucose 155 H (60-115) mg/dL Calcium 10.7 H (8.4-10.2) mg/dL Magnesium 1.9 (1.6-2.6) mg/dL Total Bilirubin 0.5 (0.0-1.0) mg/dL AST 60 H (5-31) U/L ALT 78 H (0-31) U/L Alkaline Phosphatase 112 (39-117) U/L Troponin I High Sens 3.6 (<3.5-17.0) ng/L Total Protein 7.0 (6.5-8.0) g/dL Albumin 4.8 (3.5-5.0) g/dL Lipase 14 (8-78) U/L Influenza Type A (PCR) NEGATIVE (Negative) Influenza Type B (PCR) NEGATIVE (Negative) RSV RNA Qual (PCR) NEGATIVE (Negative) SARS-CoV-2 RNA (RT-PCR) NEGATIVE (Negative) Independent Interpretation I performed an independent interpretation of an: EKG ( my interpretation: EKG normal sinus rhythm rate of 63. RBBB. Bifascicular block. QTC 483. No STEMI.) and CT Scan Radiology Impression Discussion of test interpretation with radiology: I have reviewed the radiologist's reading. Independent Historian Clinical information obtained from an independent historian. History obtained from or confirmed by: Other (son) External Record Review External record reviewed: Inpatient record, Office record, Outpatient record, Prior outpatient labs, Prior outpatient radiology, Primary care record and Outside ED record Tests considered The following testing was considered but not selected: As above Prescription Management I considered prescription management with: Pain Medication and Other Chronic Conditions Patient?s care impacted by: Other Social Determinants Patient?s care significantly limited by Social Determinants of Health including: Other Social Determinant of Health Medications Administered Discontinued Medications Generic Name Dose Route Start Last Admin Trade Name Freq PRN Reason Stop Dose Admin Al Hydroxide/Mg Hydroxide 30 ml 04/04/25 09:42 04/04/25 10:44 Magnesium Hydrox/Alum Hydrox 30 Ml Oral.Susp PO 04/04/25 09:43 30 ml ONCE ONE Administration Diphenhydramine HCl 50 mg 04/04/25 09:40 04/04/25 10:15 Diphenhydramine Hcl 50 Mg/Ml Vial IVPUSH 04/04/25 09:41 50 mg ONCE ONE Administration Famotidine 20 mg 04/04/25 09:42 04/04/25 10:15 Famotidine/Pf 20 Mg/2 Ml Vial IVPUSH 04/04/25 09:43 Not Given ONCE ONE Sodium Chloride 1,000 mls @ 999 mls/hr 04/04/25 09:45 04/04/25 10:45 Ns IV 04/04/25 10:45 999 mls/hr .Q1H1M DANIELLE Administration Iohexol 100 ml 04/04/25 10:27 04/04/25 10:32 Iohexol 350 Mg/Ml 100 Ml Infus..Btl IV 04/04/25 10:28 85 ml ONCE ONE Administration Morphine Sulfate 2 mg 04/04/25 09:40 04/04/25 10:15 Morphine Sulfate 4 Mg/Ml Cartridge IVPUSH 04/04/25 09:41 2 mg ONCE ONE Administration Protocol Ondansetron HCl 4 mg 04/04/25 09:40 04/04/25 10:15 Ondansetron Hcl 4 Mg/2 Ml Vial IVPUSH 04/04/25 09:41 4 mg ONCE ONE Administration Discharge Plan Discharge Clinical Impression: Epigastric abdominal pain Patient Disposition: Home, Self-Care Prescriptions: No Action albuterol sulfate 90 mcg/actuation HFA aerosol inhaler 2 puff inhalation Q4-6H PRN (Reason: shortness of breath or wheezing) Qty: 6.7 0RF lisinopril [Zestril] 20 mg tablet 20 mg PO DAILY 90 Days Qty: 90 1RF azithromycin 250 mg tablet See Rx Instructions PO .COMPLEX Qty: 6 0RF Rx Instructions: take 500 mg today (day 1), then 250 mg for 4 days (days 2-5) PO phenazopyridine [Pyridium] 200 mg tablet 200 mg PO TID 3 Days Qty: 9 0RF Print Language: Bulgarian
--- NOTE | 2025-04-04 09:35 | PC.NURSE ---
PEYTON Evans at bedside evaluating the patient. Visitor at bedside. Patient appears uncomfortable, is nauseous.
[2025-04-04 09:38] LABS: Alanine Aminotransferase 78 U/L (0-31); Albumin Level 4.8 g/dL (3.5-5.0); Alkaline Phosphatase 112 U/L (39-117); Anion Gap 12 (12-20); Aspartate Amino Transferase 60 U/L (5-31); Blood Urea Nitrogen 23 mg/dL (9-16); Calcium 10.7 mg/dL (8.4-10.2); Carbon Dioxide 26 mmol/L (22-29); Chloride 107 mmol/L (96-108); Creatinine Clr Calc Pharmacy 83.5; Estimated Glomerular Filt Rate > 60; Lipase 14 U/L (8-78); Magnesium 1.9 mg/dL (1.6-2.6); Potassium 3.9 mmol/L (3.3-5.1); Sodium 141 mmol/L (135-145); Total Protein 7.0 g/dL (6.5-8.0)
[2025-04-04 09:53] LABS: Resp Syncy Virus RNA Qual PCR NEGATIVE (Negative); SARS COV2 PCR INHOUSE NEGATIVE (Negative)
[2025-04-04 10:00] VITALS: BP 165/60; PULSE 62; RESP 17; O2SAT 99
[2025-04-04 10:08] LABS: Troponin-I High Sensitivity 3.6 ng/L (<3.5-17.0)
[2025-04-04 10:15] VITALS: RESP 20
[2025-04-04] MEDS: iohexoL 350 MG/ML 100 ML INFUS..BTL IV (10:32)
[2025-04-04] MEDS: Magnesium Hydrox/Alum Hydrox 30 ML ORAL.SUSP PO (10:44)
--- OUTSIDE RECORDS SUMMARY | 2025-04-04 11:19 | XMS_ITS | Clinical Summary ---
Author Organization [facility] Address [address] [address] Phone Care Team Providers Care Film Laboratory Technician Name Role Phone Mario Smith MD Primary Care Provider [phone] Allergies Active Allergy Reactions Criticality Noted Date Comments Penicillins Anaphylaxis 03/08/2011 Medications lisinopril (ZESTRIL ORAL) Take by mouth. Active Active Problems Problem Noted Date Diagnosed Date Hypertensive disorder 05/20/2011 Overview (06/04/2014): Hypertension Family History Medical History Relation Comments Lung cancer Father lung cancer Coronary artery disease Mother coronary artery disease Hypertension Mother hypertension Type 2 Diabetes Mother diabetes mellitu s type 2 Type 2 Diabetes Sister diabetes mellitu s type 2 Relation Status Comments Father Mother Sister Social History Tobacco Use Types Packs/Day Years Used Date Smoking Tobacco: Never Smokeless Tobacco: Never Education Answer Date Recorded Are you interested in more education? Not on opal e 08/18/2022 Are you concerned about learning? Not on file 08/18/2022 No 08/18/2022 No 08/18/2022 Digital Access Answer Date Recorded No 09/08/2022 No 09/08/2022 No 09/08/2022 Reliable internet access at home? Not on file 09/08/2022 Device with a working camera? Not on file Comments Unknown Sex and Gender Information Value Date Recorded Sex Assigned at Not on file Legal Sex Female 6:22 PM EST Gender Identity Not on file Sexual Orientation Not on file Last Filed Vital Signs Vital Sign Reading Time Taken Comments Blood Pressure 169/94 03/08/2011 12:32 PM EST Pulse 114 03/08/2011 12:32 PM EST Temperature - - Respiratory Rate 18 03/08/2011 12:32 PM EST Oxygen Saturation - - Inhaled Oxygen Concentration - - Weight - - Height - - Body Mass Index - - Plan of Treatment Health Maintenance Due Date Last Done Comments Adult Td,Tdap Booster 1956 BLOOD PRESSURE 1956 LIPID PANEL 1956 DEPRESSION SCREENING 1968 HEPATITIS C SCREENING 1974 MAMMOGRAM 1996 COLOGUARD 2001 COLONOSCOPY 2001 COLORECTAL CANCER SCREENING 2001 FIT TEST 2001 FOBT 2001 SIGMOIDOSCOPY 2001 VIRTUAL COLONOSCOPY 2001 PNEUMOCOCCAL VACCINES (50+ y ears) (1 of 1 - PCV) 2006 ZOSTER VACCINES (1 of 2) 2006 CREATININE LEVEL 03/11/2012 03/11/2011 POTASSIUM LEVEL 03/11/2012 03/11/2011 OSTEOPOROSIS SCREENING INITI AL (ONE-TIME) 2021 INFLUENZA VACCINE (#1) 2024 COVID-19 VACCINE ( - 2024-2 6 season) 2024 RSV VACCINE (1 - 1-dose 75+ series) 09/04/2031 SMOKING STATUS SCREENING (On ce After 26 Yrs) Completed 04/27/2019 HEPATITIS A VACCINES Aged Out No long er eligible based on patient's age to complete this topic HIB VACCINES Aged Out No longer eligi ble based on patient's age to complete this topic MENINGOCOCCAL VACCINES (ACWY) Aged Out No longer eligible based on patient's age to complete this topic MENINGOCOCCAL VACCINES (B) Aged Out N o longer eligible based on patient's age to complete this topic Medical Devices Not on file Procedures Procedure Name Priority Date/Time Associated Diagnosis Comments HISTORICAL LAB Routine 03/11/2011 3:12 PM EST from Last 3 Months or Most Recently Relevant to Health Maintenance Results * (ABNORMAL) Historical Lab (03/11/2011 3:12 PM EST) Pathologist [facility] [place] NEW REF RANGE BASIC METABOLIC PANEL NOTE: NEW REFERENCE RANGES FOR BASIC METABOLIC PANEL EFFECTIVE 01/30/2011 [facility] GLUCOSE 94 70 - 110 MG/DL [facility] BUN 17 8 - 25 MG/DL [facility] CREATININE, SERUM 0.76 0.60 - 1.50 MG/DL [facility] SODIUM 140 135 - 145 MMOL/L [facility] POTASSIUM 4.4 3.5 - 5.0 MMOL/L [facility] CHLORIDE 100 100 - 108 MMOL/L [facility] CARBON DIOXIDE 28.5 23.0 - 31.9 MMOL/L [facility] ANION GAP 16 0 - 16 [facility] E[facility] INFIRMBEATTY CALCIUM 10.6(Abnormal ly H) 8.5 - 10.5 MG/DL [facility] 03/11/2011 3:12 PM EST 03/11/2011 3:12 PM EST Narrative [facility] - 03/11/2011 4:20 PM EST SPECIAL INSTRUCTIONS med unit 03/12 vitrectom y w/laser o us Mena Gage MD LAB BLOOD ORDERAB[place] [address], [facility] from Last 3 Months or Most Recently Relevant to Health Maintenance [facility] [place] [facility] Care Teams Film Laboratory Technician Relationship Specialty Start Date End Date Mario Smith MD [address] [place] [address] PCP - General 10/12/13 Additional Source Comments The information contained in this document represents components of the legal health record. It is not the complete legal health record.[facility]
[2025-04-04 11:51] VITALS: BP 158/72; PULSE 82; RESP 20; TEMP 37.1; O2SAT 93
== END 2025-04-04 11:51 | disposition home or self-care (01) ==
PROVIDERS: Physician Assistant; Emergency Provider Emergency Medicine; PCP Internal Medicine
DX: R10.13 Epigastric pain (principal); R11.2 Nausea with vomiting, unspecified; I45.10 Unspecified right bundle-branch block; R94.31 Abnormal electrocardiogram [ECG] [EKG]; Z87.891 Personal history of nicotine dependence; Z03.818 Encounter for observation for suspected exposure to other biological agents ruled out; Z79.899 Other long term (current) drug therapy
CPT/HCPCS: 74177; 80053; 83690; 83735; 84484; 85025; 87637; 93005; 96361; 96374; 96375; 99284; 99285; J1200; J2270; J2405; Q9967

== ENCOUNTER → 2025-04-04 08:56 | Outpatient (BNV) | payer MEDICARE, MEDICAID, SELFPAY | PROVIDERS: Emergency Provider Emergency Medicine; PCP Internal Medicine; Visit Provider Internal Medicine Cardiovascular Disease | DX: I45.2 Bifascicular block (principal); I51.7 Cardiomegaly | CPT/HCPCS: 93010 ==

== ENCOUNTER → 2025-04-04 09:40 | Outpatient (BNV) | payer MEDICARE, MEDICAID, SELFPAY | PROVIDERS: Emergency Provider Emergency Medicine; PCP Internal Medicine; Visit Provider Radiology Diagnostic Radiology | DX: R10.13 Epigastric pain (principal); R11.0 Nausea | CPT/HCPCS: 74177 ==